=== PATIENT | male | born 2000 | race Hispanic/Latino ===

== ENCOUNTER 2022-03-16 09:02 | Emergency (ER) | payer OTHER ==
[~2022-03-16] VITALS: Ht 170.2 cm; Wt 85.2 kg
[2022-03-16 10:51] VITALS: BP 119/59
== END 2022-03-16 11:17 | disposition home or self-care (01) ==
LOC: M ED 09:02
DX: Z20.822 Contact with and (suspected) exposure to COVID-19 (principal)